=== PATIENT | female | born 1945 | race Caucasian/White ===

== ENCOUNTER 2017-05-20 08:00 | Inpatient (IN) | payer OTHER ==
[2017-05-12 08:23] VITALS: BMI 25.4
--- NOTE | 2017-05-19 10:04 | HP ---
[facility] - Chief Complaint Chief Complaint: right knee pain - Past Medical History Allergies/Adverse Reactions: Allergies Allergy/AdvReac Type Severity Reaction Status Date / Time No Known Allergies Allergy Verified 05/12/17 08:14 - Current Medications Current Medications: Home Medications Medication Instructions Recorded Atenolol [Tenormin -] 25 mg PO HS 04/03/14 Desipramine HCl [Norpramin -] 50 mg PO HS 04/03/14 Levothyroxine [Synthroid -] 88 mcg PO DAILY 04/03/14 Aripiprazole [Abilify] 15 mg PO DAILY 01/31/16 Atorvastatin Ca [Lipitor] 20 mg PO HS 01/31/16 Furosemide [Lasix] 20 mg PO DAILY 05/12/17 Satellite Physical Exam - Physical Examination General Appearance: Well Nourished, Well Developed, Alert & Oriented x3 ENT: Clear Lung: Normal air movement Heart: Regular rate & rhythm Extremities: Other (right knee- +swelling, + ttp, decr rom, nvi xrays show severe tricompartmental djd) Neurological: Intact, Alert, Oriented Satellite Impression/Plan - Impression/Plan Impression: right knee djd Operative Procedure: right qiana tkr Date to be Performed: 05/20/17
[2017-05-20] MEDS ORDERED: TRANEXAMIC ACID 1000 MG/10 ML VIAL IVPUSH ONE (09:53)
[2017-05-20] MEDS ORDERED: GABAPENTIN 300 MG CAPSULE (FP) PO ONE ×2 (09:53→10:00)
[2017-05-20] MEDS ORDERED: CELECOXIB 200 MG CAPSULE PO ONE ×2 (09:53→10:00)
[2017-05-20] MEDS ORDERED: oxyCODONE HCL 10 MG SUSTAINED ACTING TABLET PO ONE ×2 (09:53→10:00)
[2017-05-20] MEDS ORDERED: CEFAZOLIN 1 GM/D5W 50 ML IVPB ONE (09:53)
[2017-05-20] MEDS ORDERED: MIDAZOLAM HCL 2 MG/2 ML SINGLE DOSE VIAL ONE (10:20)
[2017-05-20] MEDS ORDERED: DEXAMETHASONE SOD PHOSPHATE/PF 10 MG/ML SDV ONE (10:21)
[2017-05-20] MEDS ORDERED: SODIUM CHLORIDE 0.9% P/F 10 ML VIAL IJ ONE (10:21)
[2017-05-20] MEDS ORDERED: BUPIVACAINE HCL/PF (5 MG/ML) 30 ML VIAL IJ ONE (10:21)
[2017-05-20] MEDS ORDERED: ceFAZolin SODIUM 1 GM VIAL ONE ×2 (12:13→12:49)
[2017-05-20] MEDS ORDERED: VANCOMYCIN 1,000 MG VIAL (RESTRICTED TO ID ONLY) ONE (12:13)
[2017-05-20] MEDS ORDERED: TRANEXAMIC ACID 1000 MG/10 ML VIAL ONE ×2 (12:48→14:46)
[2017-05-20] MEDS ORDERED: PROPOFOL 20 ML ONE (12:52)
[2017-05-20] MEDS ORDERED: ONDANSETRON 4 MG/2 ML VIAL IVPUSH PRN (14:18)
[2017-05-20] MEDS ORDERED: oxyCODONE HCL 5 MG TABLET PO PRN (14:19)
[2017-05-20] MEDS ORDERED: ACETAMINOPHEN 325 MG TABLET (FP) PO SCH ×2 (14:30→15:30)
[2017-05-20] MEDS ORDERED: MAGNESIUM HYDROX 2400MG/30ML ORAL SUSPENSION 30 ML CUP PO PRN (14:53)
[2017-05-20] MEDS ORDERED: MAG HYDROX/AL HYDROX/SIMETH 30 ML UNIT-DOSE CUP PO PRN (14:53)
[2017-05-20] MEDS ORDERED: ONDANSETRON 4 MG/2 ML VIAL IVPB PRN (14:53)
--- NOTE | 2017-05-20 14:56 | OP ---
Operative Note - Note: Operative Date: 05/20/17 (lyubov) Pre-Operative Diagnosis: right knee djd Operation: right qiana tkr Post-Operative Diagnosis: Same as Pre-op Surgeon: Timothy Pagan Convertible Power Shovel Operator: Ezra Rao Anesthesiologist/CREDIT REFERENCE CLERK: Christa Acuna Anesthesia: Spinal, Local Specimens Removed: bone fragments Estimated Blood Loss (mls): 50 (tourniquet) Operative Report Dictated: Yes
[2017-05-20] MEDS ORDERED: LACTATED RINGERS SOLUTION 1,000 ML IV SCH (15:00)
[2017-05-20] MEDS: LACTATED RINGERS SOLUTION 1,000 ML IV SCH (15:49)
--- NOTE | 2017-05-20 16:57 | OP ---
DATE OF OPERATION: 05/20/2017 PREOPERATIVE DIAGNOSIS: Degenerative joint disease, right knee. POSTOPERATIVE DIAGNOSIS: Degenerative joint disease, right knee. PROCEDURE: Right total knee replacement with robotic-assisted navigation (MAKOplasty). SURGICAL ATTENDING: Timothy Pagan MD NATIONAL ACCOUNT EXECUTIVE: ERICH Rodriguez ANESTHESIA: Spinal and regional. CLOSURE: A Triathlon knee system with a 2 femur, a 2 tibia with a 50-mm extension, a 13 TS polyethylene, 32 patella. Number 1 Vicryl fascia, 0 and 2-0 in the subcutaneous, 3-0 Monocryl subcuticular with skin glue for skin, 4-0 undyed Vicryl for pin sites. ESTIMATED BLOOD LOSS: Negligible. TOURNIQUET TIME: Approximately 80 minutes. COMPLICATIONS: None. CONDITION: To recovery room in stable condition. DESCRIPTION OF OPERATIVE PROCEDURE: Patient was taken to the operating room on May 20, 2017. Spinal and regional anesthesia were administered by the anesthesiologist. IV Kefzol was administered prophylactically prior to the case, as well as TXA. A well-padded pneumatic tourniquet was placed on the right proximal thigh. The right lower extremity was prepped and draped in the usual sterile fashion. A 12-cm longitudinal incision centered over the patella was incised. Hemostasis was achieved with Bovie cautery. Sharp dissection was carried down to the level of the extensor mechanism sufficient to allow me to perform the procedure. A medial parapatellar arthrotomy was then performed with the patella inverted, and the knee was flexed up. Fat pad was excised. Subperiosteal dissection was done medially until the knee was able to be brought forward. This was facilitated by taking the remnants of the ACL and PCL and the menisci. There were large loose bodies in the posteromedial corner that were debrided. Two bicortical pins were drilled in the tibia a handbreadth distal to the tibial tubercle. Two small stab incisions and 2 pins were drilled anteroposterior through the incision in the distal femur. Checkpoints were malletted into the medial femoral condyle and the tibia. The knee was registered with the navigation device. Registration was confirmed on both the tibia and the femur by "popping the bubbles." At this point, the osteophytes circumferentially were debrided using a rongeur. There was marked downward sloping of the posteromedial tibia with significant varus. It was thus decided to make our cuts on the tibia slightly more distal with a larger cut in order to take more of that bone away and to just apply a larger polyethylene liner. The caps were balanced in both extension and flexion and confirmed by use of the navigation device. The bone was then cut as per our virtual plan both on the tibia and the femur. Caps were assessed in flexion and in extension and revealed to be equal in both with a 13-mm insert. The tibia was left in slight varus as the patient had marked varus prior to the case. The box was then made with the boxing instructor. A trial number 2 femur was applied on the femur, and a number 2 tibial baseplate with a 13-mm insert was allowed to "find itself." It was then clipped into place. It was confirmed with the navigation device to be in the appropriate position as well. The patella was calipered for thickness, then osteotomized at the appropriate level. A 32 lollipop was used to drill the lugholes in the patella, and then, a 32 button was applied. The knee was taken through a range of motion, had excellent stability throughout and excellent tracking of the patella. It was decided to add a small extension juliana to the tibial baseplate due again to the significant bone loss in the posteromedial corner and to use a TS implant to aid with stability as well. Trial components were removed, and the keyhole was punched and drilled. The knee was pulse antibiotic irrigated with copious amounts of antibiotic irrigation. The real components were then cemented in using modern generation cement techniques with antibiotic cement and pressurized in extension. The knee was then thoroughly inspected to remove all excess cement. The real polyethylene component was then clipped into place. Range of motion, stability and tracking of the patella were as described earlier. The knee was again thoroughly irrigated. Vancomycin powder was placed inside the knee. The medial parapatellar arthrotomy was then closed using number 1 Vicryl interrupted suture, 0 and 2-0 for subcutaneous, 3-0 Monocryl subcuticular with skin glue for skin with 4-0 undyed Vicryl for pin sites. Sterile Aquacel dressing was applied. X-rays showed good position. The patient was awakened from anesthesia and transferred to the recovery room in stable condition. No complications. Estimated blood loss was negligible. Total tourniquet time was approximately 80 minutes. Jesus [id number]
[2017-05-20] MEDS: CEFAZOLIN 1 GM/D5W 50 ML IVPB SCH (19:58)
[2017-05-20] MEDS: ACETAMINOPHEN 325 MG TABLET (FP) PO SCH (21:38)
[2017-05-20] MEDS: ATORVASTATIN CA 20 MG TABLET (FP) PO SCH (21:38)
[2017-05-20] MEDS: ATENOLOL 25 MG TABLET (FP) PO SCH (21:38)
[2017-05-20] MEDS: SENNOSIDES/DOCUSATE COMBO (SENNA PLUS) TABLET (UD) PO SCH (21:38)
[2017-05-20] MEDS: DESIPRAMINE HCL 50 MG TABLET PO SCH (21:55)
[2017-05-20] MEDS: oxyCODONE HCL 5 MG TABLET PO PRN (23:17)
[2017-05-21] MEDS: oxyCODONE HCL 5 MG TABLET PO PRN ×2 (02:53→19:22)
[2017-05-21] MEDS: ACETAMINOPHEN 325 MG TABLET (FP) PO SCH ×4 (02:54→21:15)
[2017-05-21] MEDS: CEFAZOLIN 1 GM/D5W 50 ML IVPB SCH (03:14)
[2017-05-21] MEDS: LEVOTHYROXINE NA 88 MCG TABLET (FP) PO SCH (06:40)
[2017-05-21 08:07] LABS: MCH 28.4 pg (25.7-33.7); MCHC 33.6 g/dl (32.0-36.0); MEAN CELL VOLUME 84.5 fl (80-96); MEAN PLT VOLUME 8.6 fl (7.5-11.1); PLATELET COUNT 210 K/MM3 (134-434); RDW 13.4 % (11.6-15.6); WHITE BLOOD COUNT 10.2 K/mm3 (4.0-10.8)
--- NOTE | 2017-05-21 08:15 | PN ---
Progress Note (short form) - Note Progress Note: Ortho Pt seen and examined s/p right qiana tkr pod #1 Selected Entries 05/21/17 06:00 Temperature 98.1 F Pulse Rate 72 Respiratory 19 Rate Blood Pressure 112/60 Laboratory Tests 05/21/17 07:00 WBC 10.2 D Hgb 11.9 Hct 35.4 Plt Count 210 dressing c/d/i, calf soft, nt rom 0-60, nvi a/p PT dvt ppx pain control d/c home tomorrow if stable
[2017-05-21] MEDS: SENNOSIDES/DOCUSATE COMBO (SENNA PLUS) TABLET (UD) PO SCH ×2 (09:07→21:15)
[2017-05-21] MEDS: ASPIRIN 325 MG TABLET PO SCH (09:07)
--- NOTE | 2017-05-21 09:35 | PN ---
Progress Note (short form) - Note Progress Note: Anesthesiology Post-op/Pain Service POD#1 s/p Right TKR under regional/neuraxial anesthesia. Pt. states that she feels well overall but she has some dizziness/tiredness. Pain is present but reasonably controlled with meds. Very small area of residual paresthesia on sole of right foot but she is able to participate in PT. VSS. Reassured re. dizziness/tiredness but will address if worsens.
[2017-05-21] MEDS ORDERED: ARIPiprazole 10 MG TABLET PO SCH (10:00)
[2017-05-21] MEDS ORDERED: ARIPiprazole 5 MG TABLET (FP) PO SCH (10:00)
[2017-05-21] MEDS: ARIPiprazole 15 MG TABLET PO SCH (10:54)
[2017-05-21] MEDS: FUROSEMIDE 20 MG TABLET (FP) PO SCH (10:55)
[2017-05-21] MEDS: PANTOPRAZOLE 40 MG TABLET (FP) PO SCH (10:55)
[2017-05-21] MEDS: MULTIVITAMINS (DAILY MVI) TABLET (FP) PO SCH (10:55)
[2017-05-21] MEDS: LACTATED RINGERS SOLUTION 1,000 ML IV SCH (20:52)
[2017-05-21] MEDS ORDERED: PT OWN MED DRAWER 7, Y5N ONE (21:06)
[2017-05-21] MEDS: DESIPRAMINE HCL 50 MG TABLET PO SCH (21:15)
[2017-05-21] MEDS: ATORVASTATIN CA 20 MG TABLET (FP) PO SCH (21:15)
[2017-05-21] MEDS: ATENOLOL 25 MG TABLET (FP) PO SCH (21:15)
[2017-05-22] MEDS: ACETAMINOPHEN 325 MG TABLET (FP) PO SCH ×2 (02:39→12:24)
[2017-05-22] MEDS: LEVOTHYROXINE NA 88 MCG TABLET (FP) PO SCH (06:14)
[2017-05-22 06:33] VITALS: BP 111/62; PULSE 95; TEMP 99.2
[2017-05-22] MEDS: oxyCODONE HCL 5 MG TABLET PO PRN (06:33)
--- NOTE | 2017-05-22 08:07 | PN ---
Progress Note (short form) - Note Progress Note: Ortho Pt seen and examined s/p right qiana tkr pod #2 Selected Entries 05/22/17 06:00 Temperature 99.2 F Pulse Rate 95 H Respiratory 19 Rate Blood Pressure 111/62 Laboratory Tests 05/21/17 07:00 WBC 10.2 D Hgb 11.9 Hct 35.4 Plt Count 210 dressing c/d/i, calf soft, nt rom 0-60, nvi a/p PT dvt ppx pain control d/c home today f/u in 1 week
--- NOTE | 2017-05-22 08:08 | DS ---
Physical Examination Vital Signs: Vital Signs Temperature 99.2 F 05/22/17 06:00 Pulse Rate 95 H 05/22/17 06:00 Respiratory Rate 19 05/22/17 06:00 Blood Pressure 111/62 05/22/17 06:00 O2 Sat by Pulse Oximetry (%) 95 05/22/17 06:32 Discharge Summary Reason For Visit: OSTEOARTHRITIS Procedures: Principal: s/p right qiana tkr Hospital Course: admitted for elective right qiana tkr, uneventful post-op, stable for d/c Condition: Good - Instructions Diet, Activity, Other Instructions: Post-op Instructions-Total Knee Replacement Call the office for a follow-up appointment in 1 week - [phone] Aspirin 325mg daily for 6 weeks. Pain medication was sent into your pharmacy. Apply Graduated Compression Stockings (TEDs) to both lower extremities- remove daily for hygiene ONLY Apply Sequential Compression Device (SCDs) to both Lower extremities remove for PT and hygiene ONLY Apply cold packs to affected area for 15 minutes every 2 hours. Physical Therapist will come to your home for the first 5 days. You will be set up with outpatient PT at your first post-operative visit. Patient may ambulate as tolerated-encourage self care (at least every 2-3 hours while awake) with walker or cane Maintain Aquacel (waterproof) dressing to operative wound (will be removed by surgeon at first office visit) Shower with Aquacel dressing in place-if Aquacel integrity compromised, remove and apply dry sterile dressing and notify Orthopedist. DO NOT SHOWER unless Orthopedists approves without Aquacel dressing CONTACT THE OFFICE FOR ANY CHANGE IN YOUR CONDITION (for example-fever greater than 102 degrees,excessive bleeding from operative site, purulent drainage, severe swelling or pain) GO TO THE EMERGENCY ROOM IF THERE IS A MEDICAL EMERGENCY Knee Precautions: * Keep a rolled towel under affected heel while in bed or chair (to keep knee in extension) * Keep affected leg elevated except during mealtimes * DO NOT PLACE PILLOW UNDER AFFECTED KNEE * If you have any questions, please do not hesitate to call the office - [phone]. Referrals: Timothy Pagan MD [Staff Physician] - Disposition: VNS/HOME HEALTH CARE - Home Medications Comprehensive Discharge Medication List: Ambulatory Orders Atenolol [Tenormin -] 25 mg PO HS 04/03/14 Desipramine HCl [Norpramin -] 50 mg PO HS 04/03/14 Levothyroxine [Synthroid -] 88 mcg PO DAILY 04/03/14 Aripiprazole [Abilify] 15 mg PO DAILY 01/31/16 Atorvastatin Ca [Lipitor] 20 mg PO HS 01/31/16 Furosemide [Lasix] 20 mg PO DAILY 05/12/17 Aspirin [ASA -] 325 mg PO DAILY@0800 tablet 05/20/17 Oxycodone HCl/Acetaminophen [Percocet 5-325 mg Tablet -] 1 - 2 tab PO Q6H #50 tab MDD 8 05/20/17
[2017-05-22 08:44] LABS: MCH 28.9 pg (25.7-33.7); MCHC 34.8 g/dl (32.0-36.0); MEAN PLT VOLUME 9.1 fl (7.5-11.1); PLATELET COUNT 206 K/MM3 (134-434); RDW 13.1 % (11.6-15.6); WHITE BLOOD COUNT 13.5 K/mm3 (4.0-10.8)
[2017-05-22] MEDS ORDERED: PT OWN MED DRAWER 7, Y5N ONE ×2 (09:16→10:29)
[2017-05-22] MEDS: MULTIVITAMINS (DAILY MVI) TABLET (FP) PO SCH (09:21)
[2017-05-22] MEDS: ASPIRIN 325 MG TABLET PO SCH (09:21)
[2017-05-22] MEDS: PANTOPRAZOLE 40 MG TABLET (FP) PO SCH (09:21)
[2017-05-22] MEDS: FUROSEMIDE 20 MG TABLET (FP) PO SCH (09:21)
[2017-05-22] MEDS: SENNOSIDES/DOCUSATE COMBO (SENNA PLUS) TABLET (UD) PO SCH (09:21)
[2017-05-22] MEDS: ARIPiprazole 15 MG TABLET PO SCH (09:30)
--- NOTE | 2017-05-22 16:02 | PATH ---
Surgical Pathology Report Patient Name: DELICIA YUNG Med. Rec. #: [id number] /Age/Gender: 1945 (Age: 71) / F Account: [id number] Location: [facility] MED-SURG Taken: 05/20/2017 Received: 05/20/2017 Reported: 05/22/2017 Physicians: Timothy Pagan M.D. Specimen(s) Received BONE RIGHT KNEE Clinical History Right knee osteoarthritis Final Diagnosis BONE, RIGHT KNEE, TOTAL KNEE REPLACEMENT: DEGENERATIVE JOINT DISEASE. Electronically Signed Deanna Powell M.D. Gross Description Received in formalin labeled "bone right knee," is an 11.0 x 9.5 x 2.2 cm aggregate of multiple irregular portions of bone and soft tissue. The tibial plateau measures 7.5 x 5.5 x 1.6 cm. There is a 2.6 cm greatest dimension area of eburnation present. The remaining articular surfaces are fitzpatrick-yellow and focally granular. The underlying trabecular bone is yellow and hard. Activity Therapist sections are submitted in one cassette, following decalcification. 05/21/201705/21/2017
== END 2017-05-22 13:02 | disposition home health service (06) | DRG 470 ==
LOC: FM/S 08:47
PROVIDERS: ADMIT Orthopaedic Surgery; ATTEND Orthopaedic Surgery
PROC: 8E0Y0CZ Robotic Assisted Procedure of Lower Extremity, Open Approach (ICD-10-PCS; 2017-05-20)
PROC: 0SRC0J9 Replacement of Right Knee Joint with Synthetic Substitute, Cemented, Open Approach (ICD-10-PCS; principal; 2017-05-20 13:05)
DX: M17.11 Unilateral primary osteoarthritis, right knee (principal); M06.9 Rheumatoid arthritis, unspecified; I10 Essential (primary) hypertension; E03.9 Hypothyroidism, unspecified; F31.9 Bipolar disorder, unspecified
CPT/HCPCS: 36415; 73560-TC-RT; 85027; 88304-TC; 88311-TC; 94010; 94760; 97010-GP; 97116-GP; 97161-GP

== ENCOUNTER 2018-04-01 07:42 | Day surgery (SDC) | payer OTHER ==
[2018-03-30 15:47] VITALS: BMI 27.3
[2018-04-01] MEDS ORDERED: PROPOFOL 20 ML ONE ×2 (07:48)
[2018-04-01] MEDS ORDERED: LIDOCAINE HCL/PF 2% SDV 5ML VIAL ONE (07:48)
[2018-04-01 09:52] VITALS: TEMP 97.4
[2018-04-01 10:12] VITALS: BP 113/70; PULSE 68
--- NOTE | 2018-04-03 15:52 | PATH ---
Surgical Pathology Report Patient Name: DELICIA YUNG [facility]. Rec. #: [id number] /Age/Gender: 1945 (Age: 72) / F Account: [id number] Location: [facility]-ENDOSCOPY Taken: 04/01/2018 Received: 04/01/2018 Reported: 04/03/2018 Physicians: Christophe Mi M.D. Specimen(s) Received A: BX CECUM B: RECTO SIGMOID Clinical History Rule out colon cancer Postoperative diagnosis: Polyps Final Diagnosis A. CECUM, BIOPSY: TUBULAR ADENOMA. B. RECTOSIGMOID, BIOPSY: TUBULAR ADENOMA. Electronically Signed Deanna Powell M.D. Gross Description A. Received in formalin, labeled "cecum" is a fitzpatrick, irregular portion of soft tissue measuring 0.7 cm. in greatest dimension. The specimen is submitted in toto in one cassette. B. Received in formalin, labeled "rectosigmoid" is a fitzpatrick, irregular portion of soft tissue measuring 0.6 cm. in greatest dimension. The specimen is submitted in toto in one cassette. /04/02/2018 [facility]04/02/2018
== END 2018-04-01 10:20 | disposition home or self-care (01) ==
LOC: FASU-ENDO 07:42
PROVIDERS: ATTEND Internal Medicine Gastroenterology
PROC: 0DBH8ZX Excision of Cecum, Via Natural or Artificial Opening Endoscopic, Diagnostic (ICD-10-PCS; principal; 2018-04-01 09:18)
PROC: 0DBN8ZX Excision of Sigmoid Colon, Via Natural or Artificial Opening Endoscopic, Diagnostic (ICD-10-PCS; 2018-04-01 09:18)
DX: Z86.010 Personal history of colon polyps (principal); Z80.0 Family history of malignant neoplasm of digestive organs; D12.0 Benign neoplasm of cecum; D12.7 Benign neoplasm of rectosigmoid junction
CPT/HCPCS: 88305-TC

== ENCOUNTER 2018-11-07 19:48 | Inpatient (IN) | payer OTHER ==
--- NOTE | 2018-11-07 20:34 | PDOC ---
History of Present Illness - History of Present Illness Initial Comments: 11/07/18 21:37 The patient is a 73 year old female, with a significant PMH of hypertension, high cholesterol, anxiety, hypothyroidism and chronic knee pain, who was BIBA to the emergency department s/p fall from her bed about 2 feet high. EMS states that she was on the floor for about a half hour to an hour before their arrival. Patient states she was trying to get out of bed to go to the bathroom when she fell. Patient notes she usually does not have a problem ambulating. She reports a recent cold and says she did receive the flu shot. The patient denies chest pain, shortness of breath, headache and dizziness. Denies fever, chills, nausea, vomit, diarrhea and constipation. Denies dysuria, frequency, urgency and hematuria. PAST MEDICAL HISTORY: hypertension, high cholesterol, anxiety, hypothyroidism and chronic knee pain PAST SURGICAL HISTORY: bilateral knee replacement FAMILY HISTORY: no pertinent history SOCIAL HISTORY: Pt lives alone. MEDICATIONS: reviewed ALLERGIES: As per nursing notes Adult Review of Systems General: (+) generalized weakness. No fevers or chills, no weight loss HEENT: No change in vision. No sore throat,. No ear pain CardioVascular: No chest pain or shortness of breath Respiratory: No cough, or wheezing. Gastrointestinal: no nausea, vomiting, diarrhea or constipation, No rectal bleeding Genitourinary: No dysuria, hematuria, or frequency Musculoskeletal: No joint or muscle pain or swelling Neurologic: No headache, vertigo, dizziness or loss of consciousness Psychiatric: nor depression Skin: No rashes or easy bruising Endocrine: no increased thirst or abnormal weight change Allergic: no skin or latex allergy All other systems reviewed and normal Adult Exam: General: Well-nourished well-developed individual, no acute distress HEENT: Throat: Normal, tonsils normal, no erythema or exudate Neck: Supple, no meningeal signs, no lymphadenopathy Eyes::Pupils equal reactive and round, extraocular motion intact Chest: Nontender to palpation Cardiac: S1-S2 normal, regular rate and rhythm, no murmurs rubs or gallops Respiratory: Lungs clear to auscultation bilateral Abdomen: Soft, nondistended, normal bowel sounds, nontender to palpation diffusely Extremities: (+)Scars bilateral knees, well healed. Warm, dry, no cyanosis, clubbing, or edema Skin: No rashes Neuro: Alert and oriented x3, nonfocal exam, grossly intact, normal gait Psych: Normal mood and affect 11/07/18 22:08 <Sally Jacques - Last Filed: 11/07/18 22:08> - General History Source: Patient Exam Limitations: No Limitations - History of Present Illness Initial Comments: 11/07/18 21:34 A portion of this note was documented by scribe services under my direction. I have reviewed the details of the note, within reason, and agree with the documentation with the following case summary and management plan written by me. Patient treated in the ED. Nursing notes are reviewed and incorporated into the medical decision-making. Vital signs reviewed. Assessment and plan: This is 73-year-old female who was brought in by EMS for evaluation of fell and couldn't get up. Patient was on the floor approximately one hour. Patient denies any injury or hitting her head when she fell. Patient said she was attempting to get out of her bed to go to the bathroom when she became too weak to stand and slumped to the floor. Patient said she was too weak to get up. Patient has a recent upper respiratory tract infection. He should otherwise is without complaints denied any injury. Workup initiated including CBC, comp, urinalysis, EKG, chest x-ray, head CT, cardiac enzymes. Chest x-ray very no acute pathology Head CT some mild cortical atrophy otherwise no acute pathology <Ella Benavidez I - Last Filed: 11/07/18 22:13> - General Chief Complaint: Injury Stated Complaint: FALL Time Seen by Provider: 11/07/18 20:08 Past History <Sally Jacques - Last Filed: 11/07/18 22:08> - Past Medical History Anemia: No Asthma: No Cancer: Yes (breast) Cardiac Disorders: Yes CVA: No COPD: No CHF: No Dementia: No Diabetes: No GI Disorders: Yes (CONSTIPATION) Disorders: No HTN: Yes Hypercholesterolemia: Yes Liver Disease: No Psychiatric Problems: Yes Seizures: No Thyroid Disease: Yes (hypo) Other medical history: chronic knee pain - Surgical History Abdominal Surgery: No Appendectomy: No Cardiac Surgery: No Cholecystectomy: No Lung Surgery: No Neurologic Surgery: No Orthopedic Surgery: Yes (SPINAL SURGERY 2013/LEFT TKR 2011) - Suicide/Smoking/Psychosocial Hx Smoking History: Never smoked Have you smoked in the past 12 months: No Number of Cigarettes Smoked Daily: 0 If you are a former smoker, when did you quit?: 1980S Hx Alcohol Use: No Drug/Substance Use Hx: No Substance Use Type: None Hx Substance Use Treatment: No <Ella Benavidez I - Last Filed: 11/07/18 22:13> - Past Medical History Allergies/Adverse Reactions: Allergies Allergy/AdvReac Type Severity Reaction Status Date / Time No Known Allergies Allergy Verified 03/30/18 15:38 Home Medications: Ambulatory Orders Atenolol [Tenormin -] 25 mg PO HS 04/03/14 Desipramine HCl [Norpramin -] 50 mg PO HS 04/03/14 Levothyroxine [Synthroid -] 88 mcg PO DAILY 04/03/14 Aripiprazole [Abilify] 15 mg PO HS 01/31/16 Atorvastatin Ca [Lipitor] 20 mg PO HS 01/31/16 Furosemide [Lasix] 20 mg PO DAILY 05/12/17 *Physical Exam - Vital Signs Last Vital Signs Temp Pulse Resp BP Pulse Ox 98 F 86 16 146/67 98 11/07/18 19:57 11/07/18 19:57 11/07/18 19:57 11/07/18 19:57 11/07/18 19:57 <Sally Jacques - Last Filed: 11/07/18 22:08> - Vital Signs Last Vital Signs Temp Pulse Resp BP Pulse Ox 98 F 86 16 146/67 98 11/07/18 19:57 11/07/18 19:57 11/07/18 19:57 11/07/18 19:57 11/07/18 19:57 <Ella Benavidez I - Last Filed: 11/07/18 22:13> Moderate Sedation - Procedure Monitoring Vital Signs: Procedure Monitoring Vital Signs Temperature 98 F 11/07/18 19:57 Pulse Rate 86 11/07/18 19:57 Respiratory Rate 16 11/07/18 19:57 Blood Pressure 146/67 11/07/18 19:57 O2 Sat by Pulse Oximetry (%) 98 11/07/18 19:57 <Sally Jacques - Last Filed: 11/07/18 22:08> - Procedure Monitoring Vital Signs: Procedure Monitoring Vital Signs Temperature 98 F 11/07/18 19:57 Pulse Rate 86 11/07/18 19:57 Respiratory Rate 16 11/07/18 19:57 Blood Pressure 146/67 11/07/18 19:57 O2 Sat by Pulse Oximetry (%) 98 11/07/18 19:57 <Ella Benavidez I - Last Filed: 11/07/18 22:13> ED Treatment Course - LABORATORY CBC & Chemistry Diagram: 11/07/18 21:00 11/07/18 21:00 - ADDITIONAL ORDERS Additional order review: Laboratory Results 11/07/18 21:00 Urine Color Yellow Urine Appearance Sl cloudy Urine pH 5.0 Ur Specific Oolitic > 1.030 Urine Protein 1+ H Urine Glucose (UA) Negative Urine Ketones Negative Urine Blood Negative Urine Nitrite Negative Urine Bilirubin Negative Urine Urobilinogen 0.2 Ur Leukocyte Esterase 1+ H 11/07/18 21:00 RBC 4.50 MCV 85.9 MCHC 32.5 RDW 13.7 MPV 9.1 Neutrophils % 82.1 Lymphocytes % 7.7 L Monocytes % 8.5 Eosinophils % 0.0 Basophils % 1.7 <Sally Jacques - Last Filed: 11/07/18 22:08> - LABORATORY CBC & Chemistry Diagram: 11/07/18 21:00 11/07/18 21:00 <Ella Benavidez I - Last Filed: 11/07/18 22:13> *DC/Admit/Observation/Transfer <Sally Jacques - Last Filed: 11/07/18 22:08> - Discharge Dispostion Decision to Admit order: Yes <Ella Benavidez I - Last Filed: 11/07/18 22:13> Diagnosis at time of Disposition: Rhabdomyolysis Qualifiers: Rhabdomyolysis type: traumatic Encounter type: initial encounter Qualified Code (s): T79.6XXA - Traumatic ischemia of muscle, initial encounter - Discharge Dispostion Condition at time of disposition: Stable - Referrals Referrals: Shana Kendall MD [Primary Care Provider] - - Patient Instructions - Post Discharge Activity
[2018-11-07 21:22] LABS: BASO % 1.7 % (0-2.0); HEMATOCRIT 38.6 % (32.4-45.2); HEMOGLOBIN 12.6 GM/dl (10.7-15.3); LYMPH % 7.7 % (8-40); MCH 27.9 pg (25.7-33.7); MCHC 32.5 g/dl (32.0-36.0); MEAN CELL VOLUME 85.9 fl (80-96); MEAN PLT VOLUME 9.1 fl (7.5-11.1); MONO % 8.5 % (3.8-10.2); NEUT % 82.1 % (42.8-82.8); PLATELET COUNT 182 K/MM3 (134-434); RDW 13.7 % (11.6-15.6); WHITE BLOOD COUNT 6.9 K/mm3 (4.0-10.8)
[2018-11-07 21:28] LABS: ALBUMIN 3.9 g/dl (3.4-5.0); ALK PHOS 67 U/L (45-117); ANION GAP 11 MMOL/L (8-16); BILIRUBIN,TOTAL 0.9 mg/dl (0.2-1); BLOOD UREA NITROGEN 24 mg/dl (7-18); CALCIUM 10.3 mg/dl (8.5-10); CHLORIDE 101 mmol/L (98-107); CO2 21 mmol/L (21-32); CREATININE 1.2 mg/dl (0.55-1.3); GLUCOSE,RANDOM 124 mg/dl (74-106); POTASSIUM 3.9 mmol/L (3.5-5.1); SGOT/AST 49 U/L (15-37); SGPT/ALT 28 U/L (13-61); SODIUM 133 mmol/L (136-145); TOT PROT 7.7 g/dl (6.4-8.2)
[2018-11-07] MEDS ORDERED: SODIUM CHLORIDE 1,000 ML IV ONE (22:12)
[2018-11-07] MEDS ORDERED: SODIUM CHLORIDE 1,000 ML IV SCH (23:15)
[2018-11-07 23:23] LABS: URINE APPEARANCE SL CLOUDY; URINE COLOR YELLOW; URINE GLUCOSE (UA) NEGATIVE (NEGATIVE)
[2018-11-07 23:24] LABS: URINE BILIRUBIN NEGATIVE (NEGATIVE); URINE KETONE 1+ (NEGATIVE); URINE LEUK ESTERASE TRACE (NEGATIVE); URINE NITRITE NEGATIVE (NEGATIVE); URINE PROTEIN 2+ (NEGATIVE); URINE UROBILINOGEN 0.2 (0.2-1.0)
[2018-11-07 23:32] LABS: EPI CELLS 1+ /HPF; URINE BACTERIA 1+ /hpf (NEGATIVE)
[2018-11-07] MEDS ORDERED: OSELTAMIVIR PHOSPHATE 75 MG CAPSULE PO ONE (23:53)
[2018-11-08] MEDS ORDERED: OSELTAMIVIR PHOSPHATE 75 MG CAPSULE ONE
[2018-11-08 01:00] VITALS: BMI 27.3
[2018-11-08 09:08] LABS: ALBUMIN 3.3 g/dl (3.4-5.0); ALK PHOS 52 U/L (45-117); ANION GAP 11 MMOL/L (8-16); BILIRUBIN,TOTAL 0.9 mg/dl (0.2-1); BLOOD UREA NITROGEN 20 mg/dl (7-18); CALCIUM 9.4 mg/dl (8.5-10); CHLORIDE 107 mmol/L (98-107); CO2 19 mmol/L (21-32); GLUCOSE,RANDOM 83 mg/dl (74-106); PHOSPHOROUS 2.4 mg/dl (2.5-4.9); POTASSIUM 3.7 mmol/L (3.5-5.1); SGOT/AST 64 U/L (15-37); SGPT/ALT 30 U/L (13-61); SODIUM 137 mmol/L (136-145); TOT PROT 6.4 g/dl (6.4-8.2)
--- NOTE | 2018-11-08 12:13 | HP ---
Admitting History and Physical - Admission Chief Complaint: weakness, cough History of Present Illness: 73 yo female who developed for approximately 1 week upper respiratory symptoms. Yesterday she became extremely weak and fell off her bed while trying to get up. After approximately 1 hour the patient called the ambulance and was brought to the hospital. History Source: Patient Limitations to Obtaining History: No Limitations - Past Medical History Cardiovascular: Yes: HTN, Hyperlipdemia ...: No Heme/Onc: Yes: Cancer (Breast cancer s/p right Mastectomy) Psych: Yes: Bipolar Musculoskeletal: Yes: Osteoarthritis Rheumatology: Yes: Rheumatoid Arthritis Endocrine: Yes: Hypothyroidism, Other (Hypothroidism) - Smoking History Smoking history: Never smoked Have you smoked in the past 12 months: No Aproximately how many cigarettes per day: 0 If you are a former smoker, when did you quit?: 1980S - Alcohol/Substance Use Hx Alcohol Use: No Home Medications - Allergies Allergies/Adverse Reactions: Allergies Allergy/AdvReac Type Severity Reaction Status Date / Time No Known Allergies Allergy Verified 03/30/18 15:38 - Home Medications Home Medications: Ambulatory Orders Atenolol [Tenormin -] 25 mg PO HS 04/03/14 Levothyroxine [Synthroid -] 88 mcg PO DAILY 04/03/14 Aripiprazole [Abilify] 15 mg PO HS 01/31/16 Atorvastatin Ca [Lipitor] 20 mg PO HS 01/31/16 Review of Systems - Review of Systems Constitutional: reports: Fever, Lethargy, Loss of Appetite, Weakness Eyes: reports: No Symptoms HENT: reports: Nasal Congestion, Throat Pain Neck: reports: No Symptoms Cardiovascular: denies: Chest Pain, Edema, Palpitations, Shortness of Breath Respiratory: reports: Cough. denies: Orthopnea, SOB, Wheezing Gastrointestinal: denies: Abdominal Pain, Bloating, Constipation, Diarrhea Genitourinary: reports: No Symptoms Breasts: reports: No Symptoms Reported Musculoskeletal: reports: Muscle Weakness. denies: Muscle Cramps Psychiatric: reports: No Symptoms Physical Examination Vital Signs: Vital Signs Temperature 100.2 F H 11/08/18 04:00 Pulse Rate 69 11/08/18 04:00 Respiratory Rate 18 11/08/18 09:00 Blood Pressure 120/61 11/08/18 04:00 O2 Sat by Pulse Oximetry (%) 97 11/08/18 09:00 Constitutional: Yes: No Distress, Calm Eyes: Yes: Conjunctiva Clear HENT: Yes: Atraumatic, Normocephalic Neck: Yes: Supple, Trachea Midline Cardiovascular: Yes: Regular Rate and Rhythm, S1, S2 Respiratory: Yes: Regular, Cough, On Nasal O2. No: Rales, Rhonchi, SOB Gastrointestinal: Yes: Normal Bowel Sounds, Soft, Abdomen, Obese. No: Hepatomegaly, Splenomegaly Breast(s): Yes: Other (right mastectomy) Extremities: No: Amputation, Calf Tenderness Edema: No Peripheral Pulses WNL: Yes Neurological: Yes: Alert, Oriented Psychiatric: Yes: Alert, Oriented Labs: CBC, BMP 11/07/18 21:00 11/08/18 07:00 Imaging - Results Chest X-ray: Other (read by me: good inspiratory effort, can not comment on heart size, free CPA, no masses, no infiltrates) Cat Scan: Other (CT scan of the head, official reading is pending) EKG: Other (NSR, 71 b/min, normal P and AK intervak, QRS axis at 0 degrees, good R wave progression, non specific St T changes) Problem List - Problems (1) Rhabdomyolysis Assessment/Plan: continue iv hydration monitor Phosphorus level, CPK and LFT's replenish today with K phos liberal fluid intake early mobilization, Code(s): M62.82 - RHABDOMYOLYSIS Qualifiers: Rhabdomyolysis type: traumatic Encounter type: initial encounter Qualified Code(s): T79.6XXA - Traumatic ischemia of muscle, initial encounter (2) Influenza A Assessment/Plan: start Tamiflu although the onset of the viral syndrome is not clear Robitussin cough syrup for cough suppression Code(s): J10.1 - FLU DUE TO OTH IDENT INFLUENZA VIRUS W OTH RESP MANIFEST (3) Rheumatoid arthritis Assessment/Plan: stabel at this yime add Tylenol for pain or fever Code(s): M06.9 - RHEUMATOID ARTHRITIS, UNSPECIFIED (4) Breast cancer Assessment/Plan: history of right breast cancer in remission at this time Code(s): C50.919 - MALIGNANT NEOPLASM OF UNSP SITE OF UNSPECIFIED FEMALE BREAST (5) Hypothyroidism Assessment/Plan: continue Synthroid at the current dose Code(s): E03.9 - HYPOTHYROIDISM, UNSPECIFIED (6) HTN (hypertension) Assessment/Plan: hold Atenolol for now since the patient's blood pressure is normal and her dehydration is still being corrected Code(s): I10 - ESSENTIAL (PRIMARY) HYPERTENSION (7) Hyperlipidemia Assessment/Plan: hold Simvastatin due to potential effect on LFT's during Rhabdo Code(s): E78.5 - HYPERLIPIDEMIA, UNSPECIFIED
--- NOTE | 2018-11-08 12:38 | EKG ---
Test Reason : Blood Pressure : / mmHG Vent. Rate : 071 BPM Atrial Rate : 071 BPM P-R Int : 126 ms QRS Dur : 082 ms QT Int : 384 ms P-R-T Axes : 075 010 068 degrees QTc Int : 417 ms NORMAL SINUS RHYTHM NONSPECIFIC ST ABNORMALITY ABNORMAL ECG NO PREVIOUS ECGS AVAILABLE Confirmed by CHIO BROWN MD ([id number]) on 11/08/2018 12:38:05 PM Referred By: SARAH PERRY Confirmed By:CHIO BROWN MD
[2018-11-08] MEDS: CHOLECALCIFEROL (VITAMIN D3) 1,000 UNIT TABLET (FP) PO SCH (12:40)
[2018-11-08] MEDS: CYANOCOBALAMIN 1,000 MCG TABLET (FP) PO SCH (12:40)
[2018-11-08] MEDS: NAPH,MB-DB/K PH,MBDB POWDER PACKET PO SCH ×2 (13:50→21:28)
[2018-11-08] MEDS ORDERED: ACETAMINOPHEN WITH CODEINE 300MG/30MG TABLET PO PRN (18:33)
[2018-11-08] MEDS ORDERED: ENOXAPARIN NA (PORCINE) 30 MG/0.3 ML DISP.SYRIN SQ SCH (19:00)
[2018-11-08] MEDS: ENOXAPARIN NA (PORCINE) 30 MG/0.3 ML DISP.SYRIN SQ SCH (19:52)
[2018-11-08] MEDS: OSELTAMIVIR PHOSPHATE 30 MG CAPSULE PO SCH (21:28)
[2018-11-08] MEDS: ARIPiprazole 10 MG TABLET PO SCH (22:52)
[2018-11-09] MEDS ORDERED: LEVOTHYROXINE NA 88 MCG TABLET (FP) PO SCH (07:00)
[2018-11-09 09:30] LABS: ALBUMIN 2.9 g/dl (3.4-5.0); ALK PHOS 52 U/L (45-117); ANION GAP 7 MMOL/L (8-16); BILIRUBIN,TOTAL 0.4 mg/dl (0.2-1); BLOOD UREA NITROGEN 17 mg/dl (7-18); CALCIUM 9.2 mg/dl (8.5-10); CHLORIDE 112 mmol/L (98-107); CO2 20 mmol/L (21-32); CREATININE 0.9 mg/dl (0.55-1.3); GLUCOSE,RANDOM 87 mg/dl (74-106); PHOSPHOROUS 2.6 mg/dl (2.5-4.9); POTASSIUM 3.8 mmol/L (3.5-5.1); SGOT/AST 71 U/L (15-37); SGPT/ALT 40 U/L (13-61); SODIUM 139 mmol/L (136-145); TOT PROT 5.9 g/dl (6.4-8.2)
[2018-11-09] MEDS: NAPH,MB-DB/K PH,MBDB POWDER PACKET PO SCH (10:29)
[2018-11-09] MEDS: OSELTAMIVIR PHOSPHATE 30 MG CAPSULE PO SCH ×2 (10:29→22:30)
[2018-11-09] MEDS: CHOLECALCIFEROL (VITAMIN D3) 1,000 UNIT TABLET (FP) PO SCH (10:30)
[2018-11-09] MEDS: ENOXAPARIN NA (PORCINE) 30 MG/0.3 ML DISP.SYRIN SQ SCH (10:30)
[2018-11-09] MEDS: CYANOCOBALAMIN 1,000 MCG TABLET (FP) PO SCH (10:30)
[2018-11-09] MEDS ORDERED: SODIUM CHLORIDE 0.45% 1,000 ML IV SCH (18:00)
--- NOTE | 2018-11-09 18:00 | PN ---
Progress Note, Physician Chief Complaint: patient with cough when lying flat, otherwise feeling better, had a loose bowel movement in the morning - Current Medication List Current Medications: Active Medications Acetaminophen/Codeine Phosphate (Tylenol # 3 -) 1 tab PO Q4H PRN PRN Reason: PAIN LEVEL 6-10 Aripiprazole (Abilify) 10 mg PO [facility] Last Admin: 11/08/18 22:52 Dose: 10 mg Ascorbic Acid (Vitamin C -) 500 mg PO BID [facility] Atenolol (Tenormin -) 25 mg PO DAILY [facility] Cholecalciferol (Vitamin D3 -) 1,000 unit PO DAILY [facility] Last Admin: 11/09/18 10:30 Dose: 1,000 unit Cyanocobalamin (Vitamin B12 -) 1,000 mcg PO DAILY [facility] Last Admin: 11/09/18 10:30 Dose: 1,000 mcg Enoxaparin Sodium (Lovenox -) 40 mg SQ DAILY [facility] Last Admin: 11/09/18 10:30 Dose: 40 mg Sodium Chloride (1/2 Normal Saline) 1,000 mls @ 50 mls/hr IV ASDIR [facility] Stop: 11/10/18 17:53 Levothyroxine Sodium (Synthroid -) 50 mcg GT DAILY [facility] Oseltamivir Phosphate (Tamiflu -) 30 mg PO BID [facility] Stop: 11/13/18 21:59 Last Admin: 11/09/18 10:29 Dose: 30 mg - Objective Vital Signs: Vital Signs Temperature 97.7 F 11/09/18 14:09 Pulse Rate 63 11/09/18 14:09 Respiratory Rate 16 11/09/18 14:09 Blood Pressure 137/71 11/09/18 14:09 O2 Sat by Pulse Oximetry (%) 97 11/09/18 14:09 Constitutional: Yes: No Distress, Calm Eyes: Yes: Conjunctiva Clear, EOM Intact HENT: Yes: Atraumatic, Normocephalic Neck: Yes: Supple, Trachea Midline Cardiovascular: Yes: Regular Rate and Rhythm, S1, S2 Gastrointestinal: Yes: Normal Bowel Sounds, Soft, Abdomen, Obese. No: Hepatomegaly, Splenomegaly Extremities: No: Calf Tenderness Edema: No Peripheral Pulses WNL: Yes Neurological: Yes: Alert, Oriented Psychiatric: Yes: Alert, Oriented Labs: CBC, BMP 11/07/18 21:00 11/09/18 06:00 Problem List - Problems (1) Rhabdomyolysis Assessment/Plan: continue iv hydration monitor Phosphorus level, CPK and LFT's replenish today with K phos liberal fluid intake early mobilization, Code(s): M62.82 - RHABDOMYOLYSIS Qualifiers: Rhabdomyolysis type: traumatic Encounter type: initial encounter Qualified Code(s): T79.6XXA - Traumatic ischemia of muscle, initial encounter (2) Influenza A Assessment/Plan: start Tamiflu although the onset of the viral syndrome is not clear Robitussin cough syrup for cough suppression Code(s): J10.1 - FLU DUE TO OTH IDENT INFLUENZA VIRUS W OTH RESP MANIFEST (3) Rheumatoid arthritis Assessment/Plan: stabel at this yime add Tylenol for pain or fever Code(s): M06.9 - RHEUMATOID ARTHRITIS, UNSPECIFIED (4) Breast cancer Assessment/Plan: history of right breast cancer in remission at this time Code(s): C50.919 - MALIGNANT NEOPLASM OF UNSP SITE OF UNSPECIFIED FEMALE BREAST (5) Hypothyroidism Assessment/Plan: continue Synthroid at the current dose Code(s): E03.9 - HYPOTHYROIDISM, UNSPECIFIED (6) HTN (hypertension) Assessment/Plan: hold Atenolol for now since the patient's blood pressure is normal and her dehydration is still being corrected Code(s): I10 - ESSENTIAL (PRIMARY) HYPERTENSION (7) Hyperlipidemia Assessment/Plan: hold Simvastatin due to potential effect on LFT's during Rhabdo Code(s): E78.5 - HYPERLIPIDEMIA, UNSPECIFIED
[2018-11-09] MEDS ORDERED: PT OWN MED DRAWER 7, Y5N ONE (21:18)
[2018-11-09] MEDS: ARIPiprazole 10 MG TABLET PO SCH (22:30)
[2018-11-09] MEDS: ASCORBIC ACID 500 MG TABLET (FP) PO SCH (22:30)
[2018-11-10] MEDS: LEVOTHYROXINE NA 50 MCG TABLET (FP) GT SCH (06:44)
[2018-11-10 08:29] LABS: ALK PHOS 54 U/L (45-117); ANION GAP 8 MMOL/L (8-16); BILIRUBIN,TOTAL 0.4 mg/dl (0.2-1); BLOOD UREA NITROGEN 15 mg/dl (7-18); CALCIUM 9.5 mg/dl (8.5-10); CHLORIDE 109 mmol/L (98-107); CO2 21 mmol/L (21-32); GLUCOSE,RANDOM 98 mg/dl (74-106); POTASSIUM 4.1 mmol/L (3.5-5.1); SGOT/AST 56 U/L (15-37); SGPT/ALT 43 U/L (13-61); SODIUM 138 mmol/L (136-145); TOT PROT 6.1 g/dl (6.4-8.2)
[2018-11-10] MEDS: CYANOCOBALAMIN 1,000 MCG TABLET (FP) PO SCH (09:38)
[2018-11-10] MEDS: ASCORBIC ACID 500 MG TABLET (FP) PO SCH ×2 (09:39→21:29)
[2018-11-10] MEDS: CHOLECALCIFEROL (VITAMIN D3) 1,000 UNIT TABLET (FP) PO SCH (09:39)
[2018-11-10] MEDS: OSELTAMIVIR PHOSPHATE 30 MG CAPSULE PO SCH ×2 (09:39→21:29)
[2018-11-10] MEDS: ENOXAPARIN NA (PORCINE) 30 MG/0.3 ML DISP.SYRIN SQ SCH (09:39)
[2018-11-10] MEDS: ATENOLOL 25 MG TABLET (FP) PO SCH (09:39)
--- NOTE | 2018-11-10 20:41 | PN ---
Progress Note, Physician Chief Complaint: patient with improved cough, feeling better,bowel movements are better - Current Medication List Current Medications: Active Medications Acetaminophen/Codeine Phosphate (Tylenol # 3 -) 1 tab PO Q4H PRN PRN Reason: PAIN LEVEL 6-10 Aripiprazole (Abilify) 10 mg PO HS [facility] Last Admin: 11/09/18 22:30 Dose: 10 mg Ascorbic Acid (Vitamin C -) 500 mg PO BID [facility] Last Admin: 11/10/18 09:39 Dose: 500 mg Atenolol (Tenormin -) 25 mg PO DAILY [facility] Last Admin: 11/10/18 09:39 Dose: 25 mg Cholecalciferol (Vitamin D3 -) 1,000 unit PO DAILY [facility] Last Admin: 11/10/18 09:39 Dose: 1,000 unit Cyanocobalamin (Vitamin B12 -) 1,000 mcg PO DAILY [facility] Last Admin: 11/10/18 09:38 Dose: 1,000 mcg Enoxaparin Sodium (Lovenox -) 40 mg SQ DAILY [facility] Last Admin: 11/10/18 09:39 Dose: 40 mg Levothyroxine Sodium (Synthroid -) 50 mcg GT DAILY@0700 [facility] Last Admin: 11/10/18 06:44 Dose: 50 mcg Oseltamivir Phosphate (Tamiflu -) 30 mg PO BID [facility] Stop: 11/13/18 21:59 Last Admin: 11/10/18 09:39 Dose: 30 mg - Objective Vital Signs: Vital Signs Temperature 97.5 F L 11/10/18 18:00 Pulse Rate 65 11/10/18 18:00 Respiratory Rate 18 11/10/18 18:00 Blood Pressure 135/68 11/10/18 18:00 O2 Sat by Pulse Oximetry (%) 96 11/10/18 18:00 Constitutional: Yes: No Distress, Calm Eyes: Yes: Conjunctiva Clear, EOM Intact HENT: Yes: Atraumatic, Normocephalic Neck: Yes: Supple, Trachea Midline Cardiovascular: Yes: Regular Rate and Rhythm, S1, S2 Respiratory: Yes: Regular, CTA Bilaterally Gastrointestinal: Yes: Normal Bowel Sounds, Soft, Abdomen, Obese. No: Hepatomegaly, Melena, Splenomegaly Musculoskeletal: Yes: WNL Extremities: No: Calf Tenderness Edema: No Peripheral Pulses WNL: Yes Neurological: Yes: Alert, Oriented Psychiatric: Yes: Alert, Oriented Labs: CBC, BMP 11/07/18 21:00 11/10/18 07:00 - ....Imaging X-ray: Other (no pleural effusion , no infiltrate, no masses) Problem List - Problems (1) Rhabdomyolysis Assessment/Plan: continue iv hydration monitor Phosphorus level, CPK and LFT's early mobilization, Code(s): M62.82 - RHABDOMYOLYSIS Qualifiers: Rhabdomyolysis type: traumatic Encounter type: initial encounter Qualified Code(s): T79.6XXA - Traumatic ischemia of muscle, initial encounter (2) Influenza A Assessment/Plan: start Tamiflu although the onset of the viral syndrome is not clear Tylenol #3 cough for cough suppression Code(s): J10.1 - FLU DUE TO OTH IDENT INFLUENZA VIRUS W OTH RESP MANIFEST (3) Rheumatoid arthritis Assessment/Plan: stable at this time add Tylenol for pain or fever Code(s): M06.9 - RHEUMATOID ARTHRITIS, UNSPECIFIED (4) Breast cancer Assessment/Plan: history of right breast cancer in remission at this time Code(s): C50.919 - MALIGNANT NEOPLASM OF UNSP SITE OF UNSPECIFIED FEMALE BREAST (5) Hypothyroidism Assessment/Plan: continue Synthroid at the current dose Code(s): E03.9 - HYPOTHYROIDISM, UNSPECIFIED (6) HTN (hypertension) Assessment/Plan: hold Atenolol for now since the patient's blood pressure is normal and her dehydration is still being corrected Code(s): I10 - ESSENTIAL (PRIMARY) HYPERTENSION (7) Hyperlipidemia Assessment/Plan: hold Simvastatin due to potential effect on LFT's during Rhabdo Code(s): E78.5 - HYPERLIPIDEMIA, UNSPECIFIED
[2018-11-10] MEDS ORDERED: PT OWN MED DRAWER 7, Y5N ONE (21:27)
[2018-11-10] MEDS: ARIPiprazole 10 MG TABLET PO SCH (21:29)
[2018-11-11] MEDS: LEVOTHYROXINE NA 50 MCG TABLET (FP) GT SCH (06:14)
[2018-11-11 08:11] LABS: ALBUMIN 3.2 g/dl (3.4-5.0); ALK PHOS 57 U/L (45-117); ANION GAP 7 MMOL/L (8-16); BILIRUBIN,TOTAL 0.5 mg/dl (0.2-1); BLOOD UREA NITROGEN 15 mg/dl (7-18); CALCIUM 9.9 mg/dl (8.5-10); CHLORIDE 106 mmol/L (98-107); CO2 23 mmol/L (21-32); GLUCOSE,RANDOM 100 mg/dl (74-106); PHOSPHOROUS 2.5 mg/dl (2.5-4.9); POTASSIUM 4.4 mmol/L (3.5-5.1); SGOT/AST 44 U/L (15-37); SGPT/ALT 44 U/L (13-61); SODIUM 136 mmol/L (136-145); TOT PROT 6.5 g/dl (6.4-8.2)
[2018-11-11] MEDS ORDERED: ENOXAPARIN NA (PORCINE) 40 MG/0.4 ML DISP.SYRIN SQ SCH (09:51)
[2018-11-11 09:57] VITALS: BP 127/74; PULSE 69; TEMP 97.5
[2018-11-11] MEDS: CYANOCOBALAMIN 1,000 MCG TABLET (FP) PO SCH (09:58)
[2018-11-11] MEDS: CHOLECALCIFEROL (VITAMIN D3) 1,000 UNIT TABLET (FP) PO SCH (09:58)
[2018-11-11] MEDS: ATENOLOL 25 MG TABLET (FP) PO SCH (09:58)
[2018-11-11] MEDS: ASCORBIC ACID 500 MG TABLET (FP) PO SCH (09:58)
[2018-11-11] MEDS: OSELTAMIVIR PHOSPHATE 30 MG CAPSULE PO SCH (09:58)
[2018-11-12] MEDS ORDERED: OSELTAMIVIR PHOSPHATE 75 MG CAPSULE PO SCH (13:45)
== END 2018-11-11 11:49 | disposition home or self-care (01) | DRG 566 ==
LOC: FER 19:48 → FM/S 11-08 00:12 → OBSVTOIN 11-09 17:48
PROVIDERS: ADMIT Internal Medicine; ATTEND Internal Medicine
DX: T79.6XXA Traumatic ischemia of muscle, initial encounter (principal); J10.1 Influenza due to other identified influenza virus with other respiratory manifestations; M06.9 Rheumatoid arthritis, unspecified; E03.9 Hypothyroidism, unspecified; I10 Essential (primary) hypertension; E78.5 Hyperlipidemia, unspecified; X58.XXXA Exposure to other specified factors, initial encounter
CPT/HCPCS: 36415; 70450-TC; 71045-TC-FY; 71046-TC-FY; 80053; 81003; 81015; 82550; 82553; 84100; 84443; 84484; 85025; 87804; 93005; 99283-25; G0378; J7030

== ENCOUNTER 2020-09-01 14:09 | Emergency (ER) | payer OTHER | END 2020-09-01 16:51 | disposition home or self-care (01) | LOC: JVIRT 14:09 | DX: Z03.818 Encounter for observation for suspected exposure to other biological agents ruled out (principal) | CPT/HCPCS: C9803; G2012-GT; U0003 ==

== ENCOUNTER 2021-06-22 00:14 | Emergency (ER) | payer OTHER ==
[2021-06-22 00:23] VITALS: PULSE 60; TEMP 97.7; BMI 28.6
[2021-06-22 00:48] VITALS: BP 145/83
== END 2021-06-22 01:11 | disposition home or self-care (01) ==
LOC: FER 00:14
DX: I10 Essential (primary) hypertension (principal)
CPT/HCPCS: 99283-25

== ENCOUNTER 2023-06-11 07:57 | Day surgery (SDC) | payer OTHER ==
[2023-06-05 15:55] VITALS: BMI 29.2
[2023-06-11 09:55] VITALS: TEMP 97
[2023-06-11 10:15] VITALS: RESP 16
[2023-06-11 10:16] VITALS: BP 130/71; PULSE 58
== END 2023-06-11 10:35 | disposition home or self-care (01) ==
LOC: FASU-ENDO 07:57
PROVIDERS: ATTEND Internal Medicine Gastroenterology
PROC: 0DJD8ZZ Inspection of Lower Intestinal Tract, Via Natural or Artificial Opening Endoscopic (ICD-10-PCS; principal; 2023-06-11 09:30)
DX: Z12.11 Encounter for screening for malignant neoplasm of colon (principal); Z86.010 Personal history of colon polyps; Z80.0 Family history of malignant neoplasm of digestive organs

== ENCOUNTER 2023-06-24 17:58 | Emergency (ER) | payer OTHER ==
[2023-06-24 18:20] VITALS: BP 132/82; PULSE 62; RESP 16; TEMP 99.1; BMI 29.2
[2023-06-24 21:00] LABS: EPITHELIAL CELLS FEW /hpf
[2023-06-24] MEDS ORDERED: NITROFURANTOIN MACROCRYSTAL 50 MG CAPSULE (FP) PO SCH (22:00)
== END 2023-06-24 22:20 | disposition home or self-care (01) ==
LOC: FER 17:58
DX: M25.562 Pain in left knee (principal); N30.00 Acute cystitis without hematuria; W19.XXXA Unspecified fall, initial encounter
CPT/HCPCS: 70450-TC; 73562-TC-LT-FY; 81003; 81015; 87086; 87186; 99285-25

== ENCOUNTER 2024-07-09 13:45 | Emergency (ER) | payer OTHER ==
[2024-07-09 14:07] VITALS: TEMP 98.2; BMI 29.2
[2024-07-10 10:42] VITALS: BP 158/76; PULSE 61; RESP 16
== END 2024-07-09 17:10 | disposition home or self-care (01) ==
LOC: FER 13:45
DX: S80.912A Unspecified superficial injury of left knee, initial encounter (principal); W01.0XXA Fall on same level from slipping, tripping and stumbling without subsequent striking against object, initial encounter
CPT/HCPCS: 73562-TC-LT-FY; 99283-25